=== PATIENT | male | born 1960 | race Caucasian/White ===

== ENCOUNTER 2025-01-25 13:09 | Outpatient (AMB) | payer MEDICARE, SELFPAY ==
--- NOTE | 2025-01-25 13:29 | A.OFFVIS_ITS ---
Vital Signs 01/25/25 13:29 Height 5 ft 10 in Intake Visit Reasons: 6m DPN Allergies No Known Allergies Allergy (Verified 01/25/25 13:35) Medication List - Last Reconciled 01/25/25 by Tresa Nava CNP amlodipine 5 mg PO DAILY apixaban (Eliquis) 5 mg PO BID buspirone 7.5 mg PO BID ciclopirox 8% topical dulaglutide (Trulicity) 3 mg subcut QWEEK empagliflozin (Jardiance) 25 mg PO QAM escitalopram oxalate 20 mg PO DAILY ezetimibe 10 mg PO DAILY fenofibrate nanocrystallized 48 mg PO DAILY furosemide 20 mg PO DAILY gabapentin 300 mg PO TID insulin glargine (Lantus Solostar U-100 Insulin) 18 units subcut BEDTIME isosorbide mononitrate ER 30 mg PO DAILY losartan 25 mg PO DAILY metformin ER 1,000 mg PO BID metoprolol tartrate 50 mg PO BID rosuvastatin 10 mg PO DAILY HPI Comments Details: More numbness to hands, particularly in fingers. More shooting and crushing - type pains in hands that last few seconds, and aching in hands. Numbness from mid-shins down bilaterally unchanged. Occasional shooting pains in legs. Has trouble walking on uneven surfaces, but no falls. Taking gabapentin 300mg 2- 3x/day and may help with 30% of the pain. Has not had alcohol since 2022. Last A1c was around 8.9. Sleep was not so good, using CPAP. Has some anxiety.? 15+ year history of diabetes, complicated by diabetic neuropathy in his legs for the last 10+ years with numbness from the mid-harvey down, with numbness in the fingertips of both hands started in 2022, and persistent numbness for 10+ years in the fourth and fifth fingers of the left hand, which was attributed to cervical disc disease. He had an MRI of his cervical spine in 04/2013 and was advised against surgery. He had some bulging discs and slight narrowing of the central canal at C5-6 and C6-7, and a C3-4 posterior disc bulge. Occasional palpitations, s/p ablation for AF. [facility] Medical History (Updated 01/25/25 @ 13:48 by Tresa Nava CNP) Cervical disc disease Atrial fibrillation Depression with anxiety Diabetes mellitus Diabetic neuropathy Ulnar neuropathy at elbow of left upper extremity Social History (Updated 01/24/25 @ 19:31 by Parisa Pena MA) Patient Tobacco Use Status: Never used Tobacco Review of Systems Const Denies chills, Denies daytime sleepiness, Denies difficulty sleeping, Denies fatigue, Denies fever(s), Denies frequent falls, Denies headache(s), Denies increased appetite, Denies poor appetite, Denies snoring, Denies weakness, Denies weight gain and Denies weight loss Eyes Denies loss of vision ENT Denies vertigo, Reports dizziness, Denies headache(s) and Reports neck pain Card Denies chest pain at rest, Denies chest pain with activity, Denies syncope, Denies leg edema, Denies palpitations, Denies dyspnea and Denies dyspnea on exertion Resp Denies cough, Denies dyspnea, Denies dyspnea on exertion and Denies snoring GI Denies abdominal pain, Denies constipation, Denies heartburn, Denies diarrhea and Denies nausea Denies urinary frequency, Denies urinary incontinence and Denies urinary urgency Musc Denies abnormal gait, Reports back pain, Reports myalgias, Reports arthralgias, Reports neck pain, Reports numbness, Denies stiffness and Reports tingling Neuro Denies abnormal gait, Denies vertigo, Reports dizziness, Denies syncope, Denies frequent falls, Denies headache(s), Denies lack of coordination, Denies loss of vision, Denies memory loss, Reports numbness, Denies Other visual disturbances, Reports restless legs, Denies seizure-like activity, Reports tingling, Denies paresthesias, Denies tremor(s) and Denies weakness Psych Reports anxiety, Denies depression, Denies memory loss, Denies visual hallucinations and Denies hallucinations Endo Denies fatigue and Denies palpitations Physical Exam Const Other: General Appearance:? normal, in no acute distress. Heart:? S1, S2 normal, no murmurs. Lungs:? clear anteriorly and posteriorly. Musculoskeletal:? normal. Extremities:? no edema. Psych:? alert, oriented, cognitive function intact, cooperative with exam. Neuro Other: Abnormal Neurological Findings:?atrophy and weakness in left ulnar innervated muscles 4-/5. Decreased sensation in left 5th and ulnar 1/2 of left ring finger. . Decreased sensation in finger tips and below mid harvey level. Absent ankle reflexes. Decreased vibration below ankles. Mental Status: alert and oriented X 3. Normal attention, orientation, memory, and affect. Cranial Nerves: Pupils are equal, round, and reactive to light. External ocular muscles are intact. Visual ashley are full, no ptosis. Face is symmetrical, no facial weakness or droop. Facial sensations are normal. Tongue protrudes in midline. Palate elevates symmetrically. Shoulder shrugging is normal Motor Examination: As above, otherwise normal muscle tone, bulk and strength. No atrophy or fasciculations. No drift of the extended upper extremities. DTR 2+. Plantars are flexor. Straight Leg Raisin degrees. Sensory Exam: As above, otherwise normal light touch, temperature, pinprick, vibration, and joint-position sensations. Rhomberg sign is absent. Coordination: No ataxia. No titubation. [id number], [id number] test, and rapid alternating movements were normal. Gait Exam: Within normal limits. Cerebellar Signs: [id number] and [id number] is normal. No dysdiadochokinesia. Extrapyramidal System: No tremor, rigidity with normal facial expressions. No bradykinesia. No bradyphrenia. Normal arm swing and posture. No propulsion or retropulsion. Speech: Normal. No dysphasia or dysarthria. Assessment & Plan Assessment & Plan (1) Diabetic neuropathy: Code(s): E11.40 - Type 2 diabetes mellitus with diabetic neuropathy, unspecified Category: Medical Qualifiers: Diabetes mellitus type: type 2 Diabetes mellitus complication detail: diabetic polyneuropathy Qualified Code(s): E11.42 - Type 2 diabetes mellitus with diabetic polyneuropathy Plan: Gabapentin dose increased. Gabapentin 300mg 1 capsule twice a day and 2 capsules at bedtime, use/side effects reviewed. Control blood sugar. Recommended sooner follow up (2-3 months) to follow up on pain and possibly adjust medication further, however he was declining and prefers to continue with follow up every 6 months. He was advised to contact the office for any new or worsening symptoms, questions, or concerns. Plan . Medications: New gabapentin 300 mg orally 1 capsule twice a day and 2 capsules at bedtime; 120 caps 2RF 30 days Discontinued gabapentin Discontinued Reason: Order 300 mg PO TID Coding Level of Care Code Est Pt Level 4 (83658) Diagnoses Diabetic polyneuropathy associated with type 2 diabetes mellitus E11.42 Diabetes mellitus type: type 2 Diabetes mellitus complication detail: diabetic polyneuropathy
--- OUTSIDE RECORDS SUMMARY | 2025-01-25 13:49 | XMS_ITS | Clinical Summary ---
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 10/23/19 23 Active FREESTYLE LANCETS MISC 1 Device by Not Applicable route 3 (three) times a day if needed (BLOOD GLUCOSE MONITORING). 10/23/19 23 Active blood sugar diagnostic (FreeStyle Lite Strips) test strip 1 each 3 (three) times a day if needed (blood glucose monitoring). In Vitro route 11/05/19 24 Active syr,ndl,ins,saf e 0.5mL,disp un (INSULIN SYRINGE-NEEDLE, DISPOS. MISC) Use up to four times daily with insulin 05/31/20 23 Active apixaban (Eliquis) 5 mg tablet Take 1 tablet (5 mg total) by mouth 2 (two) times a day. 04/15/20 23 Active aspirin 81 mg EC tablet Take 1 tablet (81 mg total) by mouth 1 (one) time each day. 08/13/19 24 Active busPIRone (BUSPAR) 7.5 mg tablet Take 1 tablet (7.5 mg total) by mouth 1 (one) time each day. 09/30/19 24 Active escitalopram (LEXAPRO) 20 mg tablet Take 1 tablet (20 mg total) by mouth 1 (one) time each day. 07/11/20 23 Active ezetimibe (ZETIA) 10 mg tablet Take 1 tablet (10 mg total) by mouth 1 (one) time each day. Active gabapentin (NEURONTIN) 300 mg capsule TAKE 1 CAPSULE NIGHTLY AT BEDTIME FOR 1 WEEK, THEN TWICE DAILY FOR 1 WEEK, THEN THREE TIMES DAILY 11/06/19 24 Active amLODIPine (NORVASC) 5 mg tabletIndicatio ns:Atherosclero tic heart disease of [place] coronary artery without angina pectoris,Unspec ified atrial fibrillation (CMS/HCC V24, CMS/HCC V28) TAKE 1 TABLET BY MOUTH EVERY DAY 90 tablet 2 06/23/20 24 Active metFORMIN XR (GLUCOPHAGE-XR) 500 mg 24 hr tablet Take 2 tablets (1,000 mg total) by mouth 2 (two) times a day with meals. 360 tablet 1 07/30/19 25 Active metoprolol tartrate (LOPRESSOR) 50 mg tablet Take 1 tablet (50 mg total) by mouth 2 (two) times a day. 180 each 2 10/14/19 25 Active rosuvastatin (CRESTOR) 10 mg tablet Take 1 tablet (10 mg total) by mouth 1 (one) time each day. 90 tablet 1 12/01/19 25 Active losartan (COZAAR) 25 mg tablet TAKE 1 TABLET BY MOUTH EVERY DAY 90 tablet 3 12/03/19 25 Active Lantus Solostar U-100 Insulin 100 unit/mL (3 mL) injection pen INJECT 18 UNITS UNDER THE SKIN AT BEDTIME. 15 mL 01/06/20 25 Active empagliflozin (Jardiance) 25 mg tablet Take 1 tablet (25 mg total) by mouth 1 (one) time each day in the morning. 90 tablet 01/08/20 25 2024 Active furosemide (LASIX) 20 mg tablet Take 1 tablet (20 mg total) by mouth 1 (one) time each day. 90 each 01/08/20 25 2024 Active insulin lispro (HumaLOG KwikPen) 100 unit/mL injection pen Inject 8 Units under the skin 3 (three) times a day before meals. 30 mL 01/08/20 Active ciclopirox (PENLAC) 8 % solution Apply topically at bedtime. Apply over nail and surrounding skin. Apply daily over previous coat. After seven (7) days, may remove with alcohol and continue cycle. 6.6 mL 1 01/08/20 25 2024 Active fenofibrate (TRICOR) 48 mg tablet Take 1 tablet (48 mg total) by mouth 1 (one) time each day. 90 each 01/08/20 25 2024 Active fluticasone-ume clidinium-vilan terol (Trelegy Ellipta) 100-62.5-25 mcg inhaler Inhale 1 puff (100 mcg total) by mouth 1 (one) time each day. 08/28/19 24 2024 Discontinued furosemide (LASIX) 20 mg tablet TAKE 1 TABLET BY MOUTH EVERY DAY 90 tablet 1 07/02/20 24 2024 Discontinued(R eorder) empagliflozin (Jardiance) 25 mg tablet Take 1 tablet (25 mg total) by mouth 1 (one) time each day in the morning. 90 tablet 1 07/02/20 24 2024 Discontinued(R eorder) insulin glargine (LANTUS SoloStar) 100 unit/mL (3 mL) injection pen Inject 18 Units under the skin at bedtime. 18 mL 10/08/19 25 2024 Discontinued fenofibrate (TRICOR) 48 mg tablet Take 1 tablet (48 mg total) by mouth 1 (one) time each day. 90 each 01/08/20 25 2024 Discontinued(E ntered in Error) Active Problems Problem Noted Date Diagnosed Date Microalbuminuria 01/07/2025 Chronic obstructive pulmonar y disease ([facility] V24, [facility] V28) 01/07/2025 Onychomycosis 01/07/2025 PAD (peripheral artery disease) ([facility] V24) Assessment & Plan (10/18/2024 3:35 PM EDT): The patient underwent an aortoiliac duplex in January 2024 as requested by the cardiac surgery service. This study showed a mild stenosis in the aorta and bilateral common iliac arteries. As such, we will order a follow-up duplex to be done around January 2025. Orders: Vascular US duplex aorta/IVC/iliac/grafts complete; Future Bilateral carotid artery stenosis 10/06/2024 Assessment & Plan (10/18/2024 3:35 PM EDT): The patient underwent a carotid artery duplex in January 2024 as requested by the cardiac surgery service. The study showed mild bilateral ICA stenosis. Will order a follow-up carotid artery duplex to be done around January 2025. 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 (CMS/HCC V24, CMS/HCC V28) 08/03/2024 Abnormal laboratory test 01/01/2023 Overview (05/04/2024): 03/19/2023 TSH elevated in the setting of amiodarone Not to the level that requires medication Improved on repeat last month still not normal Repeat with new PCP has also had elevated white blood cell count for the last 2 months Also chronically, mildly elevated white blood cell count No signs or symptoms of infection other than tooth Hearing loss 12/04/2022 Overview (05/04/2024): 03/19/2023 Given unilateral and cerumen impaction seen Suspected this as cause, but also Seen by ENT with negative MRI ? Amio effect which may still improved with time out from discontinuation Itching 12/04/2022 Overview (05/04/2024): 12/11/2022 ? 2/2 biliary issues Continue benadryl Question of cholestyramine, concern for bleeding issues on AC Neuropathy 12/04/2022 Overview (05/04/2024): 03/19/2023 Likely combo of DM and AUD as etiology chronically ? New component of amio Sx still progressing, aggressive DM control advised Coronary artery disease 07/23/2022 Overview (05/04/2024): 12/04/2022 Has hx of stent On plavix, s/p ablation for afib, still on eliquis On fenofibrate and zedia- ? Why no Statin at fu Last Assessment & Plan: The patient has a history of coronary artery disease status post stent to the diagonal branch on 06/25/2022. He is currently on antiplatelet therapy with clopidogrel. He is also on anticoagulation therapy with Eliquis. Currently, the patient denies any anginal symptoms while on medical therapy with amlodipine and metoprolol tartrate. The patient completed 1 year of antiplatelet therapy with clopidogrel following his coronary artery stent placement. As such, the patient was instructed to discontinue the clopidogrel. In its place, he will start aspirin 81 mg orally daily. Assessment & Plan (10/18/2024 3:37 PM EDT): The patient has a history of coronary artery disease status post coronary artery stent placement to the first diagonal branch in June 2022. On today's visit, the patient denies any anginal symptoms. He continues on medical therapy with statin, isosorbide mononitrate, metoprolol, and aspirin. Given that the patient has not been experiencing any symptoms of angina, we have decided (via shared decision making) to discontinue his isosorbide mononitrate 30 mg orally daily. He will continue the rest of his medication regimen. The patient has a history of coronary artery disease. During today's visit, we reviewed the warning signs that should prompt an urgent medical evaluation. Specifically, we discussed that the patient should go to the hospital if she develops any chest discomfort at rest or worsening chest discomfort with exertion. Transaminitis 07/16/2022 Alcohol use disorder, severe , in early remission ([facility] V24, [facility] V28) 05/17/2022 Overview (05/04/2024): 03/19/2023 Feels stable in sobriety! Now 6 months sober Relapse prevention strategies shared Counseled not to put self in risky situations Aneurysm of ascending aorta ([facility] V24) 2020 Overview (05/04/2024): Last Assessment & Plan: The patient has a history of an aortic root/ascending aorta dilation. The aortic root measured 4.6 cm and the ascending aorta measured 4.3 cm on 8 recent echocardiogram done in June 2023. No significant changes when compared to the echocardiogram done in May 2022. On the other hand, during a recent chest CT scan without contrast the ascending aorta measured 4.0 cm. No indication for intervention at this point given his ascending aorta dilation. Will continue monitoring with a new echocardiogram or chest CT scan in 1 year. Assessment & Plan (10/18/2024 3:35 PM EDT): The patient has a history of an ascending thoracic aortic aneurysm. Risk factors: 1. The patient does not have any family history of aortic aneurysm or aortic dissection. 2. The patient does not have any history of connective tissue disease. 3. The patient has a trileaflet aortic valve as noted on his echocardiogram done in June 2024. Aneurysm type: Sporadic aneurysm of the ascending thoracic aorta. Previous ascending thoracic aorta imagin. Echo May 2022 showed an ascending aorta dilation of 4.2 cm. 2. Echo in June 2023 showed an aortic root dilation of 4.6 cm and ascending aorta dilation of 4.[address] scan without contrast done in June 2023 showed an ascending aorta of 4.0 cm. 4. Echocardiogram in June 2024 showed an aortic root dilation of 4.6 cm and an ascending ordination of 4.3 cm. Abdominal aorta evaluation: 1. Abdominal aorta duplex done in January 2024 did not show any evidence of abdominal aortic aneurysm Given his risk profile, the criteria for repair according to the 2021 ACC aortic disease guidelines are: Ascending thoracic aneurysm measuring more than 5.5 cm (level 1 recommendation) or measuring more than 5.0 cm (level 2A recommendation) or rapid growth (defined as a growth of more than 0.3 cm/year in 2 consecutive years or more than 0.5 cm /year in a single year-level 1 recommendation). Has this patient met guideline recommended criteria for repair: No Cardiac surgery evaluation: The patient was already evaluated by Dr. Gabriel (cardiac surgery) who also agreed that the patient still does not meet criteria for an aortic root/ascending aorta repair. Blood pressure controlled: Yes Is the patient on beta-blockers or ANDREW inhibitors: Yes Management plan: 1. Follow-up echocardiogram in June 2025 2. Genetic testing to rule out a genetic disorder associated with his aortopathy. Education plan: 1. The patient was extensively counseled during today's visit regarding the warning symptoms that should prompt an urgent evaluation in the emergency room given his history of an aortic aneurysm. Specifically, the patient was instructed to go to the emergency room immediately if he had any symptoms of sudden chest, back, or abdominal pain. 2. The patient was extensively counseled during today's visit regarding the weight lifting restrictions that he should maintain in order to avoid worsening dilation of his aneurysm or an acute aortic syndrome such as an aortic dissection. The patient was counseled regarding the fact that an acute aortic syndrome such as an aortic dissection could be fatal. As such, he was instructed to avoid lifting any objects weighing more than 35 pounds. The patient was also counseled to avoid participating in any contact sports. Paroxysmal atrial fibrillation ([facility] V24, CMS /[facility] V28) 03/31/2020 Overview (05/04/2024): 03/19/2023 S/p ablation. Likely side effects with amio, was now stopped and started on metoprolol Remains in sinus in clinic Last Assessment & Plan: The patient has a history of paroxysmal atrial fibrillation status post A-fib ablation in October 2022. The patient has had occasional brief episodes of palpitations (lasting for just a few seconds per episode). He denies any prolonged episodes of palpitations.. The patient was noted to be in a sinus rhythm during today's visit. The patient continues on rate control therapy with metoprolol. Also, patient has a [id number] score of 3 (hypertension, diabetes mellitus, vascular disease). As such, he will continue on anticoagulation therapy with Eliquis. Assessment & Plan (10/18/2024 3:35 PM EDT): The patient has a history of paroxysmal atrial fibrillation status post cardioversion in July 2019 status post ablation in October 2022. He continues on anticoagulation therapy with Eliquis and rate control therapy with metoprolol. On today's visit, he refers occasional episodes of palpitations. EKG today in our office showed a sinus rhythm. 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 Orders: Cardiac holter monitor (<= 48 hours); Future CKD (chronic kidney disease) , stage III ([facility] V24, [facility] V28) 05/05/2019 Overview (05/04/2024): 12/04/2022 Has hx of microalbumin Andrew allergy Unclear if has had trial of ARB Smoking 04/28/2019 Genital warts 02/21/2016 Obstructive sleep apnea syndrome 10/17/2015 Essential hypertension 08/17/2015 Overview (05/04/2024): 03/19/2023 Remains at goal Last Assessment & Plan: The patient has a history of arterial hypertension. The patient's blood pressure today was noted to be well controlled. We'll continue the current antihypertensive medication regimen. Assessment & Plan (10/18/2024 3:35 PM EDT): The patient has a history of arterial hypertension. The patient's blood pressure today was noted to be well controlled. We'll continue the current antihypertensive medication regimen. Cervical radiculopathy 05/06/2013 Choroidal nevus 05/19/2012 HLD (hyperlipidemia) 08/06/2011 Overview (05/04/2024): Last Assessment & Plan: The patient has a history of hyperlipidemia. He also has a history of CAD. The patient is not on statin therapy due to a history of elevated LFTs in the past. Last lipid panel showed an LDL of 61 while on medical therapy with ezetimibe. He is also on fenofibrate due to hypertriglyceridemia. At this point, we will continue his current medication regimen. Assessment & Plan (10/18/2024 3:35 PM EDT): The patient has a history of hyperlipidemia. The patient is currently on rosuvastatin 10 mg orally daily and Zetia 10 mg orally daily. We will order a new lipid panel to evaluate the patient's current lipid control and determine if any adjustment are needed in the lipid lowering therapy. Orders: Comprehensive metabolic panel; Future Lipid panel with reflex to direct LDL; Future Diabetes mellitus type 2 wit h neurological manifestations ([facility] V24, [facility] V28) 09/22/2007 Overview (05/04/2024): 03/19/2023 Has CGM Re-referred to pharmacy clinic and educated Metformin, 2 units with meals and glargine glargine to 30 units Last Assessment & Plan: Diabetes Partnership-He reports blood sugars are usually in the 120-130 range. 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 He reports no blood sugars over 200 in the past week. See note 08/18/12 Depression 08/06/2005 Anxiety 05/16/2005 Overview (05/04/2024): 12/04/2022 On celexa Asking for ativan refill, address at fu Psych referral today Resolved Problems Problem Noted Date Diagnosed Date Resolved Date Aortic dilatation (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 V24, [facility] V28); Hyperlipidemia, unspecified hyperlipidemia type; Paroxysmal atrial fibrillation ([facility] V24, CMS/[facility] V28); Microalbuminuria; Bilateral carotid artery stenosis; Coronary artery disease involving [place] coronary artery of [place] heart without angina pectoris; PAD (peripheral artery disease) ([facility] V24); Aneurysm of ascending aorta without rupture ([facility] V24); Anxiety; Depression, unspecified depression type; Cervical radiculopathy; Chronic obstructive pulmonary disease, unspecified COPD type ([facility] V24, CMS/[facility] V28); Onychomycosis; Subungual contusion of toe of right foot, subsequent encounter; Sputum production 12/28/2024 Telephone [facility] [address] [facility] [address] [place] [address] Ananth Kilgore MD Med Refill 11/03/2024 Telephone Adult [address] [phone] [place] Appointment 10/28/2024 10:00 AM EDT Ancillary Procedure [facility] - [address] [place] [address] Type 2 diabetes mellitus with other specified complication, unspecified whether lacing presser insulin use ([facility] V24, [facility] V28); Decreased pulse from Last 3 Months Immunizations Name Administration Dates Next Due Influenza Quadravalent, MDCK , 0.5ml, preservative free (Flucelvax) 6mo and older 03/31/2023,03/30/2020,06/29/2019 Influenza Quadrivalent, 0.5m l, preservative free (Fluarix; FluLaval; Fluzone) ages 6mo and older (Afluria) 3yo and older 05/09/2022 Influenza trivalent, 0.5mL, preservative free (Fluarix; FluLaval; Fluzone) ages 6mo and older (Afluria) 3 years and older 04/09/2017,04/26/2014,05/10/2011,04/05 Influenza, Unspecified 06/17/2022 Pneumococcal polysaccharide 23 valent (Pneumovax 23) 2yo and older 03/30/2020 Td Tetanus diptheria (Tdvax) 7yo and older 01/26/2019,07/20/1996 Tdap Tetanus diptheria acell ular pertussis (Boostrix; Adacel) 7yo and older 09/21/2007 Surgical History Surgery Date Site/Laterality Comments COLONOSCOPY 06/19/2012 PROCEDURE: CO COLONOSCOPY FLX DX W/COLLJ SPEC WHEN PFRMD; COMMENT: normal CHOLECYSTECTOMY PROCEDURE: HISTORICAL CHOLECYSTECTOMY OTHER SURGICAL HISTORY PROCEDURE: PERC D-E COR STENT ATHER S; COMMENT: baystte diagonal Medical History Medical History Date Comments Osteoarthrosis, unspecified whether generalized or localized, other specified sites 05/16/2005 DX:Osteoarthrosis, unspecifi ed whether generalized or localized, other specified sites Anxiety state, unspecified 05/16/2005 DX:An xiety state, unspecified Type II or unspecified type diabetes mellitus with unspecified complication, not stated as uncontrolled DX:Type II or unspecified ty pe diabetes mellitus with unspecified complication, not stated as uncontrolled Unspecified essential hypertension DX:Unspecified essential hypertension Degeneration, intervertebral disc, cervical 05/06/2013 DX:Degeneration, interverteb ral disc, cervical Fatty liver DX:Fatty liver Chronic ischemic heart disease D X:Chronic ischemic heart disease Ascending aorta dilatation ( CMS/HCC V24) 01/15/2024 DX:Ascending aorta dilatatio n (HCC); COMMENT: 4.0 ct 4.3 echo root 4.6 CAD (coronary artery disease) DX :CAD (coronary artery disease) Family History Medical History Relation Name Comments Coronary artery disease Father Macular degeneration Mother Blindness Neg Hx Cataracts Neg Hx Glaucoma Neg Hx Strabismus Neg Hx Relation Name Status Comments Father Mother Sister Alive fibromyalgia Social History Tobacco Use Types Packs/Day Years Used Date Smoking Tobacco: Former Cigarettes Q uit: 06/20/2021 Smokeless Tobacco: Never Tobacco Cessation:Counseling Given: Not Answered Alcohol Use Standard Drinks/Week Comments Not Currently 0 (1 standard drink = 0.6 oz pur e alcohol) Housing Instability Answer Date Recorde d Are you worried that in the next 2 months you may not have stable housing? No 01/07/2025 Food Access & Nutrition Answer Date Rec orded Do you have access to a vari ety of food including fruits and vegetables? Yes 01/07/2025 Health Literacy Answer Date Recorded How often do you need to hav e someone help you when you read instructions, pamphlets, or other written material from your doctor or pharmacy? Never 01/07/2025 Caregiver: How often do you need to have someone help you when you read instructions, pamphlets, or other written material from your doctor or pharmacy? Not on file 01/07/2025 Financial Risk Answer Date Recorded How hard is it for you to pa y for the very basics like food, housing, medical care, and air conditioning / heating? Not very hard 01/07/2025 Transportation Answer Date Recorded Has the lack of transportati on kept you from meetings, work, or from getting things needed for daily living? No Has the lack of transportati on kept you from medical appointments or from getting medications? No 01/07/2025 Social Isolation Answer Date Recorded How often do you feel lonely or isolated from th ose around you? Never 01/07/2025 Food Risk Answer Date Recorded Within the past 12 months we worried whether our food would run out before we got money to buy more. Never true 01/07/2025 Within the past 12 months th e food we bought just didn't last and we didn't have money to get more. Never true 01/07/2025 Dependent Care Answer Date Recorded Do you need help finding or paying for care for your loved ones. For example, attendant child activity or elderly care for an older adult? No 01/07/2025 Education Answer Date Recorded Do you think completing more education or training, like finishing a GED, going to college, or learning a trade, would be helpful for you? No 01/07/2025 Employment and Income Answer Date Recor ded During the last four weeks, have you been actively looking for work? No 01/07/2025 Living Situation Answer Date Recorded What is your living situation? 0 01/07/2025 Sex and Gender Information Value Date Recorded Sex Assigned at Not on file Legal Sex Male 10:40 AM EST Gender Identity Not on file Sexual Orientation Not on file Obstetrics History Last Filed Vital Signs Vital Sign Reading Time Taken Comments Blood Pressure 126/76 01/07/2025 2:32 PM EDT Pulse 58 01/07/2025 2:32 PM EDT Temperature 35.7 C (96.3 F) 01/07/2025 2:32 PM EDT Respiratory Rate 15 01/07/2025 2:32 PM EDT Oxygen Saturation 95% 10/06/2024 1:24 PM EDT Inhaled Oxygen Concentration - - Weight 111 kg (245 lb) 01/07/2025 2:32 PM EDT Height 177.8 cm (5' 10 ) 01/07/2025 2:32 PM EDT Body Mass Index 35.15 01/07/2025 2:32 PM EDT Plan of Treatment Upcoming Encounters Date Type Department Care Team (Late st Contact Info) Description 01/31/2025 2:15 PM EDT Ancillary Procedure [facility] - [address] [place] [address] 02/07/2025 8:30 AM EDT Ancillary Procedure [facility] - [facility] [address] [facility] [address] [place] [address] 02/09/2025 1:00 PM EDT Consult Vascular Surgery - [place] 300 [facility] [address] [place] [address] Dyan Wang MD [address] [facility] [address] [place] [address] 2025 2:00 PM EDT Office Visit Adult Medicine [facility] [address] [place] [address] Parviz Robles MD [address] [place] [address] 05/13/2025 1:10 PM EDT Office Visit [facility] Cardiology [facility] [address] [place] [address] Helga Durham NP [address] [place] [address] Dr Will [address] [place] [address] 07/11/2025 11:00 AM EST Ancillary Procedure [facility] - [facility] [address] [facility] [address] [place] [address] 08/09/2025 2:00 PM EST Office Visit Nephrology - [facility] [address] [place] [address] Luis E Rizvi MD [address] [facility] [address] [place] [id number] Health Maintenance Due Date Last Done Comments Hepatitis A Vaccines (1 of 2 - Risk 2-dose series) 1980 Zoster Vaccines (1 of 2) 1980 COVID-19 Vaccine (3 - Pfizer risk series) 01/26/2021 12/29/2020, 11/25/2020 Pneumococcal Vaccine: 50+ Years (2 of 2 - PCV) 03/30/2021 03/30/2020 Pneumococcal Vaccine: Pediatrics (0 to 5 Years) and At-Risk Patients (6 to 49 Years) (2 of 2 - PCV) 03/30/2021 03/30/2020 Hepatitis B Vaccines (1 of 3 - Risk 3-dose series) 2021 RSV Immunization Adult Patients (1 - Risk 60-74 years 1-dose series) 2021 HIV Screening 06/29/2022 Medicare Annual Wellness Visit 06/29/2022 Diabetes: Annual Foot Exam 11/18/2024 11/19/2023 Influenza Vaccine (#1) 2025 , 06/17/2022, 05/09/2022, Additional history exists Diabetes: Blood Sugar Control Test (HGBA1C) 06/30/2025 12/29/2024, 10/13/2024, 05/11/2024, Additional history exists Diabetes: Annual Retina Eye Exam 07/21/2025 Postponed from 1971 (Patient Refused) Diabetes: Annual GFR (Glomerular Filtration Rate) 10/13/2025 10/13/2024, 05/11/2024, 12/03/2023, Additional history exists Hypertension/CHF/CAD Annual BMP Blood Test 10/13/2025 10/13/2024, 05/11/2024, 12/03/2023, Additional history exists Diabetes: Annual Urine Albumin-Creatinine Ratio (uACR) 12/29/2025 12/29/2024, 10/13/2024, 12/03/2023 Depression Screening 01/07/2026 01/07/2025, 12/03/19 Social Influencers of Health Screening 01/07/2026 01/07/2025 DTaP,Tdap,and Td Vaccines (4 - Td or Tdap) 01/26/2029 01/26/2019, 09/21/2007, 07/20/1996 Cholesterol Screening (Lipid Panel) 12/29/2029 12/29/2024, 10/13/2024, 05/11/2024, Additional history exists Colorectal Cancer Screening: Colonoscopy 04/21/2034 04/21/2024 Hepatitis C Screening Completed 10/23/2022 HIB Vaccines Aged Out No longer eligi ble based on patient's age to complete this topic HPV Vaccines Aged Out No longer eligi ble based on patient's age to complete this topic IPV Vaccines Aged Out No longer eligi ble based on patient's age to complete this topic MMR Vaccines Aged Out No longer eligi ble based on patient's age to complete this topic Meningococcal ACWY Vaccine Aged Out N o longer eligible based on patient's age to complete this topic Meningococcal B Vaccine Aged Out No l onger eligible based on patient's age to complete this topic RSV Immunization Patients Under 20 months Aged Out No longer eligible based on patient's age to complete this topic Varicella Vaccines Aged Out No longer eligible based on patient's age to complete this topic Procedures Procedure Name Priority Date/Time Associated Diagnosis Comments HEMOGLOBIN A1C Routine 12/29/2024 1:25 PM EDT Type 2 diabetes mellitus with other specified complication, unspecified whether jail insulin use ([facility] V24, [facility] V28) MICROALBUMIN CREATININE URINE RATIO Routine 12/29/2024 1:25 PM EDT Type 2 diabetes mellitus with other specified complication, unspecified whether jail insulin use ([facility] V24, [facility] V28) LIPID PANEL WITH REFLEX TO DIRECT LDL Routine 12/29/2024 1:25 PM EDT Hyperlipidemia, unspecified hyperlipidemia type VAS US DUPLEX LOWER EXT ARTERIES BILAT WITH JOSE Routine 10/28/2024 11:13 AM EDT Type 2 diabetes mellitus with other specified complication, unspecified whether jail insulin use ([facility] V24, [facility] V28) Decreased pulse COMPREHENSIVE METABOLIC PANEL Routine 10/13/2024 2:24 PM EDT Pure hypercholesterolemia COLONOSCOPY Routine 04/21/2024 DEPRESSION SCREENING Routine 12/03/2023 DIABETES FOOT EXAM Routine 11/19/2023 HEPATITIS C SCREENING Routine 10/23/2022 from Last 3 Months or Most Recently Relevant to Health Maintenance Results * (ABNORMAL) Lipid panel with reflex to direct LDL (12/29/2024 1:25 PM EDT) Cholesterol 108 0 - 200 mg/dL LAB CHEMISTRY METHOD 12/29/2024 7:18 PM EDT [facility] Triglycerides 322(H) 0 - 150 mg/dL LAB CHEMISTRY METHOD 12/29/2024 7:18 PM EDT [facility] HDL 37(L) >=40 mg/dL LAB CHEMISTRY METHOD 12/29/2024 7:18 PM EDT [facility] LDL Calculated 7 0 - 100 mg/dL LAB CHEMISTRY METHOD 12/29/2024 7:18 PM EDT [facility] VLDL Cholesterol Sean 64.4 mg/dL LAB CHEMISTRY METHOD 12/29/2024 7:18 PM EDT [facility] Non HDL Chol. (LDL+VLDL) 71 <145 mg/dL LAB CHEMISTRY METHOD 12/29/2024 7:18 PM EDT [facility] Chol/HDL Ratio 2.9 0.0 - 4.4 LAB CHEMISTRY METHOD 12/29/2024 7:18 PM EDT [facility] Blood Venous blood specimen / Unknown Venipuncture / Unknown 12/29/2024 1:25 PM EDT 12/29/2024 1:25 PM EDT us Parviz Robles MD LAB BLOOD ORDERABLES Final Result [facility] [address] [place] [address], * (ABNORMAL) Microalbumin creatinine urine ratio (12/29/2024 1:25 PM EDT) Creatinine, Urine 38.0 mg/dL LAB CHEMISTRY METHOD 12/29/2024 7:34 PM EDT [facility] Microalb, Ur 56.7(H) 0.0 - 29.0 mg/L LAB CHEMISTRY METHOD 12/29/2024 7:34 PM EDT [facility] Microalb/Crea t Ratio 149(H) <30 mg/g creat LAB CHEMISTRY METHOD 12/29/2024 7:34 PM EDT [facility] Urine Urine specimen obtained by clean catch procedure / Unknown Non-blood Collection / Unknown 12/29/2024 1:25 PM EDT 12/29/2024 1:25 PM EDT Parviz Robles MD LAB URINE ORDERABLES Final Result [facility] [address] [place] [address], [place] [phone] * (ABNORMAL) Hemoglobin A1c (12/29/2024 1:25 PM EDT) Hemoglobin A1C 9.6(H) <6.5 % LAB CHEMISTRY METHOD 12/29/2024 8:54 PM EDT [facility] Mean Bld Glu Estim. 229 mg/dL LAB CHEMISTRY METHOD 12/29/2024 8:54 PM EDT [facility] Blood Venous blood specimen / Unknown Venipuncture / Unknown 12/29/2024 1:25 PM EDT 12/29/2024 1:25 PM EDT Parviz Robles MD LAB BLOOD ORDERABLES Final Result [facility] [address] [place] [address], [place] [phone] * Vascular US duplex lower extremity arteries bilateral with JOSE (10/28/2024 11:13 AM EDT) Left Dist External Iliac PSV 77 cm/s [facility] Left Prox External Iliac PSV 81 cm/s [facility] Left AT dist sys PSV 63 cm/s [facility] Left AT mid sys PSV 62 cm/s CV [facility] LAB Left AT prox sys PSV 76 cm/s CV VAS LAB Left 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 prox sys PSV 94 cm/s CV V[facility] LAB Left popliteal dist sys PSV 60 cm/s CV V[facility] LAB Left popliteal prox sys PSV 50 cm/s CV [facility] LAB Left PT dist sys PSV 70 cm/s CV [facility] LAB Left PT mid sys PSV 92 cm/s CV V[facility] LAB Left PT prox sys PSV 76 cm/s [facility] LAB Left super femoral dist sys PSV 56 cm/s [facility] LAB Left super femoral mid sys PSV 86 cm/s CV [facility] LAB Left super femoral prox sys PSV 101 cm/s CV [facility] LAB Right Dist External Iliac PSV 92 cm/s CV VAS LAB Right Prox External Iliac PSV 79 cm/s CV [facility] LAB Right AT dist sys PSV 54 cm/s [facility] Right AT mid sys PSV 41 cm/s CV [facility] LAB Right AT prox sys PSV 69 cm/s CV [facility] LAB Right 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 LABORATORY TECHNICIAN prox sys PSV 105 cm/s CV [facility] LAB Right mid peroneal sys PSV 0 cm/s CV [facility] LAB Right popliteal dist sys PSV 50 cm/s CV [facility] LAB Right popliteal prox sys PSV 54 cm/s [facility] LAB Right PT dist sys PSV 58 cm/s [facility] Right PT mid sys PSV 59 cm/s CV [facility] LAB Right PT prox sys PSV 65 cm/s [facility] LAB Right profunda sys PSV 95 cm/s [facility] Right super femoral dist sys PSV 67 cm/s [facility] Right super femoral mid sys PSV 77 cm/s [facility] Right super femoral prox sys PSV 97 cm/s [facility] Right arm BP 121 mmHg [facility] Left arm BP 126 mmHg [facility] Right posterior tibial 130 mmHg [facility] Right Dorsalis Pedis 117 mmHg [facility] Right JOSE 1.03 CV V[facility] Left posterior tibial 128 mmHg [facility] Left Dorsalis Pedis 128 mmHg [facility] Left JOSE 1.02 [facility] LAB Anatomical Region Laterality Modality Vascular, Abdomen Ultrasound Narrative 10/29/2024 4:36 PM EDT 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 Right: The JOSE is 1.0 which is normal. Normal pulse volume waveform at the right ankle. Normal amplitude PPG waveform in the digit. There is mild atherosclerotic palque in the right lower extremity arteries. The right peroneal artery is occluded at the mid segment. 2-vessel runoff is noted in the right calf. Left: The JOSE is 1.02 which is normal. Normal pulse volume waveform at the left ankle. Normal amplitude PPG waveform in the digit. There is mild atherosclerotic palque in the left lower extremity arteries. The left peroneal artery could not be visualized. Two-vessel runoff at the left calf. Right Lower Arterial Duplex The distal external iliac artery has triphasic flow. The common femoral artery has triphasic flow. The profunda femoris artery has triphasic flow. The superficial femoral artery has triphasic flow. The popliteal artery has triphasic flow. The anterior tibial artery has triphasic flow. The posterior tibial artery has triphasic flow. 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 Left Lower Arterial Duplex The distal external iliac artery has triphasic flow. The common femoral artery has triphasic flow. The profunda femoris artery has triphasic flow. The superficial femoral artery has triphasic flow. The popliteal artery has triphasic flow. The anterior tibial artery has triphasic flow. The posterior tibial artery has triphasic flow. The mid peroneal artery was not visualized. 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 During the study longitudinal views were obtained. Continuous wave doppler and pulsed wave doppler was performed. Overall the study quality was technically difficult. Study was technically difficult due to: body habitus and patient movement. us Parviz Robles MD CV VASCULAR PROCEDURES Pilar l Result * (ABNORMAL) Comprehensive metabolic panel (10/13/2024 2:24 PM EDT) Sodium 134 133 - 145 mmol/L LAB CHEMISTRY METHOD 10/13/2024 5:01 PM EDT [facility] Potassium 4.4 3.5 - 5.5 mmol/L LAB CHEMISTRY METHOD 10/13/2024 5:01 PM EDT [facility] Chloride 101 96 - 110 mmol/L LAB CHEMISTRY METHOD 10/13/2024 5:01 PM [facility] CO2 26 21 - 32 mmol/L LAB CHEMISTRY METHOD 10/13/2024 5:01 PM [facility] Anion Gap 7 3 - 11 LAB CHEMISTRY METHOD 10/13/2024 5:01 PM [facility] Glucose 179(H) 70 - 100 mg/dL LAB CHEMISTRY METHOD 10/13/2024 5:01 PM [facility] BUN 20 5 - 25 mg/dL LAB CHEMISTRY METHOD 10/13/2024 5:01 PM [facility] Creatinine 1.05 0.70 - 1.30 mg/dL LAB CHEMISTRY METHOD 10/13/2024 5:01 PM [facility] eGFR 80 >=60 mL/min/1. 73m2 LAB CHEMISTRY METHOD 10/13/2024 5:01 PM [facility] Comment:Calculation based on the Chronic Kidney Disease Epidemiology Collaboration (CKD-EPI) equation refit without adjustment for race. BUN/Creatinine Ratio 19.0 LAB CHEMISTRY METHOD 10/13/2024 5:01 PM [facility] Calcium 9.5 8.5 - 10.5 mg/dL LAB CHEMISTRY METHOD 10/13/2024 5:01 PM [facility] AST (SGOT) 13 10 - 42 unit/L LAB CHEMISTRY METHOD 10/13/2024 5:01 PM [facility] ALT (SGPT) 28 10 - 60 unit/L LAB CHEMISTRY METHOD 10/13/2024 5:01 PM [facility] Alkaline Phosphatase 75 42 - 121 unit/L LAB CHEMISTRY METHOD 10/13/2024 5:01 PM [facility] Total Protein 7.3 6.0 - 8.0 g/dL LAB CHEMISTRY METHOD 10/13/2024 5:01 PM [facility] Albumin 3.8 3.2 - 5.0 g/dL LAB CHEMISTRY METHOD 10/13/2024 5:01 PM EDT [facility] Total Bilirubin 1.0 0.0 - 1.4 mg/dL LAB CHEMISTRY METHOD 10/13/2024 5:01 PM EDT [facility] Blood Venous blood specimen / Unknown Venipuncture / Unknown 10/13/2024 2:24 PM EDT 10/13/2024 2:24 PM EDT Ananth Kilgore MD LAB BLOOD ORDERABLES F inal Result [facility]) [facility] [address] [place] [address], [place] [phone] * Colonoscopy (04/21/2024) [facility] Colonoscopy No interpretation , abstracted Anatomical Region Laterality Modality Other Historical Provider HEALTH MAINTENANCE Final Result * Depression Screening (12/03/2023) [facility] Depression Screening Abstracted Historical Provider HEALTH MAINTENANCE Final Result * Diabetes Foot Exam (11/19/2023) [facility] Diabetes: Annual Foot Exam Abstracted Historical Provider HEALTH MAINTENANCE Final Result * Hepatitis C Screening (10/23/2022) [facility] Hepatitis C Screening Abstracted Historical Provider HEALTH MAINTENANCE Final Result from Last 3 Months or Most Recently Relevant to Health Maintenance Insurance [employer] MED[employer]ARE ADVANTAGE Advance Directives Documents on File Type Date Recorded 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
--- OUTSIDE RECORDS SUMMARY | 2025-01-25 13:49 | XMS_ITS | Clinical Summary ---
Author Organization [facility] Facility Address [address] [place] [address] Care Team Providers Care Furnace Brazer Name Role Phone Lizbeth Melgar MADISON Primary Care Provider Unav ailable Social History Tobacco Use Types Packs/Day Years Used Date Smoking Tobacco: Never Assessed Sex and Gender Information Value Date Recorded Sex Assigned at Not on file Legal Sex Male 9:35 AM EST Gender Identity Not on file Sexual Orientation Not on file Plan of Treatment Health Maintenance Due Date Last Done Comments Colorectal Cancer Screening: Annual FOBT 2010 Colorectal Cancer Screening: Colonoscopy 2010 Colorectal Cancer Screening: Sigmoidoscopy 2010 Pneumococcal Vaccine: 50+ Ye ars (1 of 1 - PCV) 2011 Influenza Vaccine (#1) 2025 Hepatitis B Vaccine Aged Out No longe r eligible based on patient's age to complete this topic Insurance [facility] [place] [place] [phone] Care Teams Furnace Brazer Relationship Specialty Start Date End Date Lizbeth Melgar APRN PCP - General Internal Medicine 07/11/21
== END 2025-01-25 14:02 | disposition home or self-care (01) ==
LOC: HO.HSM 13:09
PROVIDERS: PCP Internal Medicine; Referring Provider Internal Medicine; Visit Provider Registered Nurse
DX: E11.42 Type 2 diabetes mellitus with diabetic polyneuropathy (principal)
CPT/HCPCS: 99214

== ENCOUNTER → 2025-01-25 13:09 | Outpatient (BNVA) | payer MEDICARE, SELFPAY | PROVIDERS: PCP Internal Medicine; Referring Provider Internal Medicine; Visit Provider Registered Nurse | DX: E11.42 Type 2 diabetes mellitus with diabetic polyneuropathy (principal); Z79.4 Long term (current) use of insulin; Z79.84 Long term (current) use of oral hypoglycemic drugs | CPT/HCPCS: 99212 ==